=== PATIENT | female | born 1940 | race Caucasian/White ===

== ENCOUNTER 2021-11-28 12:51 | Emergency (ER) | payer MEDICARE, OTHER, SELFPAY ==
[2021-11-28 13:40] VITALS: BP 132/72; PULSE 95; RESP 16; TEMP 36.7; O2SAT 98
--- NOTE | 2021-11-28 14:15 | ED.GENADULT ---
HPI - General Adult General Chief complaint: Unspecified Stated complaint: malaise Time Seen by Provider: 11/28/21 14:14 History of Present Illness HPI narrative: Patient is a 81-year-old female who comes into the ED today concerned that she may have COVID-19 and requesting to be tested. She did receive her Covid vaccine a few months ago. She was exposed to COVID-19 through several different family members recently. Over the last 3 days she has been feeling fatigued and has had mild cough. However she denies any chest pain or shortness of breath or any other concerns. PCP is Dr. Sorensen Related Data Allergies Allergy/AdvReac Type Severity Reaction Status Date / Time Penicillins Allergy Intermediate HIVES Unverified 08/26/16 16:29 Review of Systems Constitutional: Constitutional: Reports as per HPI, Denies fever(s), Denies night sweats and Denies weakness Cardiovascular: Cardiovascular: Denies chest pain, Denies edema, Denies leg edema, Denies dyspnea and Denies orthopnea Respiratory: Respiratory: Reports cough and Denies dyspnea Gastrointestinal: Gastrointestinal: Denies abdominal pain, Denies constipation, Denies diarrhea, Denies nausea and Denies vomiting Musculoskeletal: Musculoskeletal: Denies abnormal gait, Denies back pain, Denies numbness and Denies tingling Neurologic: Denies Abnormal speech present, Denies abnormal gait, Denies numbness, Denies tingling and Denies weakness Psychiatric: Psychiatric: Denies homicidal ideation and Denies suicidal ideation Exam Narrative: She looks well Const: General: cooperative, healthy appearing, comfortable, no acute distress, well developed, alert, awake and Physically active Orientation/consciousness: patient oriented x3 HENMT: Head: normal to inspection, normocephalic and atraumatic Ears: external ears normal General nose exam: Normal external nose present Eyes: Pupils: Equal, round and reactive pupils present EOM: EOMs intact bilaterally Neck: Neck: normal visual inspection Chest: Chest palpation & inspection: normal inspection of the chest and no tenderness Resp: Effort & Inspection: normal respiratory effort and able to speak in complete sentences Auscultation: clear to auscultation bilaterally Cardio: Rate: regular rate Rhythm: regular rhythm GI: Inspection: normal to inspection GI Palp: No abdominal tenderness : General: Yes no CVA tenderness Back/Spine/Pelvis: Back: no CVA tenderness Skin: General skin exam: normal color and no rashes or lesions noted Lesions: no lesions Neuro: General: patient oriented x3, no focal motor deficits and CN's II-XI intact bilaterally Cranial nerves: Yes Equal, round and reactive pupils present Speech: No Abnormal speech present Extrem: General: normal to inspection and full ROM Psych: Appearance: grossly normal and well kempt Mental Status: mental status grossly normal Speech and movement: Normal speech and movement present Affect: normal affect Thought process: Normal thought process present Course Course Emergency Course: 1400: I am seeing this patient in the triage box initially as the emergency room is supported during this COVID-19 surge. This patient looks well and I am going to try to get her tested for COVID-19 and discharged with supportive care of her viral illness. Discussed strict return precautions with patient. Vital Signs Vital signs: Vital Signs Temperature 36.7 C 11/28/21 13:40 Pulse Rate 95 11/28/21 13:40 Respiratory Rate 16 11/28/21 13:40 Blood Pressure 132/72 11/28/21 13:40 Pulse Oximetry 98 11/28/21 13:40 Temperature 36.7 C 11/28/21 13:40 Pulse Rate 95 11/28/21 13:40 Respiratory Rate 16 11/28/21 13:40 Blood Pressure 132/72 11/28/21 13:40 Pulse Oximetry 98 11/28/21 13:40 Medical Decision Making Vital Signs Vital Signs: Vital Signs Temperature 36.7 C 11/28/21 13:40 Pulse Rate 95 11/28/21 13:40 Respiratory Rate 16 11/28/21 13:40
[2021-11-28 16:42] VITALS: PULSE 90; RESP 16; O2SAT 100
[2021-11-29 13:42] LABS: SARS-CoV-2 RNA PCR Positive
== END 2021-11-28 16:46 | disposition home or self-care (01) ==
PROVIDERS: Physician Assistant Medical; PCP Internal Medicine
DX: U07.1 COVID-19 (principal); R05.9 Cough, unspecified
CPT/HCPCS: 99283; C9803; U0003; U0005